=== PATIENT | male | born 1935 | race Caucasian/White ===

== ENCOUNTER 2020-04-08 08:20 | Outpatient (CLI) | payer OTHER, SELFPAY ==
[2020-04-09 15:30] LABS: SARS-CoV-2 RNA Not Detected (NotDetected); SARS-CoV-2 RNA Source Nasal/Nares
== END 2020-04-08 08:40 ==
PROVIDERS: PCP Family Medicine; Visit Provider Family Medicine
DX: Z11.59 Encounter for screening for other viral diseases (principal); Z01.818 Encounter for other preprocedural examination
CPT/HCPCS: U0003

== ENCOUNTER 2020-04-18 01:23 | Outpatient (CLI) | payer OTHER, SELFPAY ==
--- NOTE | 2020-04-18 | DI.MRI_ITS ---
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 CONTRAST MATERIAL: IV Contrast: 17 mL of Dotarem contrast administered. COMPARISON: No exams were available for comparison FINDINGS: ORBITS: The anterior and posterior chambers of the globes are intact. The retrobulbar fat is unremark able. Extraocular muscles are unremarkable. OPTIC NERVES: The intracranial and extracranial portions of the optic nerves are within normal limits . Optic chiasm is within normal limits. No MRI evidence of optic neuritis identified. SOFT TISSUES: There is a 1.8 craniocaudad by 1 AP by 1.9 transverse cm mass in the soft tissues of th e medial canthus of the right eye. It shows enhancement following contrast administration. It abuts the medial rectus muscle and the globe but those structures appear intact. Remaining soft tissues a re unremarkable. OTHER FINDINGS: There is age-appropriate cerebral atrophy. There are areas of hyperintense signal se en in visualized portions of the white matter consistent with chronic microvascular ischemic change. There is a flow void in the [id number]. The visualized paranasal sinuses are clear. IMPRESSION: Enhancing soft tissue mass in the medial canthus of the right eye measuring 1.8 x 1 x 1.9 cm. It abu ts both the medial rectus muscle and the right globe but those structures appear intact. Finding wou ld be consistent with the patient's history of carcinoma. To assess for involvement of the underlyin g bone, a CT scan of the face should be considered for further evaluation. DATA REPOSITORY:
[2020-04-18] MEDS: Normal Saline Flush 10 ML SYR IVP (11:59)
[2020-04-18] MEDS: Gadoterate meglumine 20 ML VIAL 17 ML IVP (12:00)
== END 2020-04-18 01:43 ==
PROVIDERS: PCP Family Medicine; Visit Provider Dermatology
DX: C44.1121 Basal cell carcinoma of skin of right upper eyelid, including canthus (principal)
CPT/HCPCS: 70543

== ENCOUNTER 2023-08-13 18:40 | Outpatient (REF) | payer MEDICARE, SELFPAY ==
[2023-08-13 17:01] LABS: Anion Gap 8.3 mmol/L (3-11); BUN 16 mg/dL (7-18); CO2 24.7 mmol/L (21.0-32.0); CREATININE 1.3 mg/dL (0.70-1.30); Calcium 9.4 mg/dL (8.5-10.1); Chloride 105 mmol/L (98-107); Estimated GFR 53.84 (mL/min/1.73m2); Glucose 130 mg/dL (74-106); Potassium 4.2 mmol/L (3.5-5.1); Sodium 138 mmol/L (136-145)
== END 2023-08-13 18:41 | disposition home or self-care (01) ==
LOC: NCHCN 18:40
PROVIDERS: PCP Family Medicine; Referring Provider Family Medicine; Visit Provider Family Medicine
DX: I10 Essential (primary) hypertension (principal)
CPT/HCPCS: 80048